=== PATIENT | female | born 1940 | race Caucasian/White ===

== ENCOUNTER 2024-09-23 21:04 | Day surgery (SDC) | payer OTHER, SELFPAY ==
[2024-09-23] VITALS (7 sets, daily range): BP systolic 96–133; BP diastolic 58–85; BMI 30.9; BMI 30.1
[2024-09-23] MEDS: OMNIPAQUE 50 ML PO (14:08)
[2024-09-23 14:31] LABS: % Basophils 0.4 % (0-2); % Eosinophils 1.3 % (0-6); % Immature Granulocytes 0.3 % (0-0.5); % Lymphocytes 9.6 % (20.5-51.1); % Monocytes 8.7 % (1.7-9.3); % Neutrophils 79.7 % (42.2-75.2); Absolute Eosinophils 0.1 10^3/uL (0-0.7); Absolute Monocytes 0.9 10^3/uL (0.1-0.6); Absolute Neutrophils 8.5 10^3/uL (1.4-6.5); Hematocrit 38.8 % (37.0-47.0); Hemoglobin 13.5 g/dL (12.0-16.0); Mean Corp Hgb Conc. 34.8 g/dL (33.0-37.0); Mean Corpuscular Hgb 31.1 pg (27.0-31.0); Mean Corpuscular Volume 89.4 fL (81.0-99.0); Nucleated Red Blood Cells % 0 %; Platelet Count 212 10^3/uL (130-400); Red Blood Cell Count 4.34 10^6/uL (4.20-5.40); Red Cell Dist. Width 13.2 % (11.5-14.5); White Blood Cell Count 10.6 10^3/uL (4.8-10.8)
[2024-09-23 14:33] LABS: Urine Albumin 2+ (Neg - Trace); Urine Bilirubin Negative (Negative); Urine Character Clear (Clear); Urine Color Yellow; Urine Glucose Negative (Negative); Urine Ketone Negative (Negative); Urine Leukocyte 1+ (Negative); Urine Nitrite Negative (Negative); Urine Occult Blood 1+ (Negative); Urine Urobilinogen 1+ (Neg - 1+)
[2024-09-23 14:42] LABS: Urine Bacteria Moderate (Negative); Urine Hyaline Cast 0-2 /LPF (0-2); Urine Red Blood Cell 0-2 /HPF (0-2)
[2024-09-23 14:44] LABS: ALT (SGPT) 24 U/L (0-35); AST (SGOT) 27 U/L (14-36); Albumin 4.1 g/dl (3.5-5.0); Alkaline Phosphatase 52 U/L (38-126); Blood Urea Nitrogen 22 mg/dl (7-17); Calcium 9.9 mg/dl (8.4-10.2); Carbon Dioxide 25 mmol/L (22-30); Chloride 107 mmol/L (98-107); Glucose 129 mg/dl (70-99); Lipase 65 U/L (23-300); Potassium 4.2 mmol/L (3.5-5.1); Sodium 138 mmol/L (135-145); Total Bilirubin 1.1 mg/dl (0.2-1.3); Total Protein 6.7 g/dl (6.3-8.2); eGFR 56.25
[2024-09-23] MEDS: ZOSYN 50 IV ×2 (17:50→23:45)
--- NOTE | 2024-09-23 17:57 | ED.GENMED ---
History of Present Illness
General
Chief Complaint: Abdominal Pain
Source: patient
Time Seen by Provider: 09/23/24 17:10
History of Present Illness
History of Present Illness:
84-year-old female presenting to the emergency department for evaluation of right lower quadrant pain that started yesterday, continued today with pain described to be somewhat constant but worse when she attempts movement, dull aching sensation
that becomes sharper when she moves, somewhat improved with Motrin that she took earlier today around 11 AM. Patient denies any other symptoms including nausea, vomiting, bowel changes, urinary symptoms, back or flank pain, chest pain or shortness
of breath, fevers, chills, rigors or any other concerns.
Past History
Past History
ED Past Medical History: Hypercholesterolemia and Psychiatric (depression)
ED Past Surgical History: None
Social History
Tobacco: Non-smoker
Alcohol: None
Drug: None
Personal:
Living: alone
Family History
Family History: Other (not applicable)
Review of Systems
Review of Systems
All Other Systems: ROS reviewed and negative except as documented in HPI and ROS
Phy Exam
Physical Exam
Physical Exam:
GENERAL: Alert , in no apparent distress, smiling and pleasant
EYE: clear conjunctiva b/l
HEAD: NCAT
ENT: , mmm.
CARDIAC: Regular rate and rhythm .
LUNGS: Clear breath sounds bilaterally, no acute respiratory distress, no wheezes/rales/rhonchi
ABDOMEN: Soft, mild right lower quadrant tenderness on palpation, no r/g, no cvat
NEUROLOGICAL: Alert and oriented
SKIN: Warm and dry, skin intact.
MUSCULOSKELETAL: , well perfused.
PSYCH: Normal and appropriate interaction.
Scores
Heart Failure Risk
Heart Failure Risk Score: Not Applicable
Heart Score for Chest Pain Patients
STEMI patient?: Not applicable
Withdrawal Assessment of Alcohol
Withdrawal Assessment Completed?: Not applicable
Course
Orders/Labs/Results
Orders:
Orders
09/23/24 14:06
Iohexol [Omnipaque] 50 ml .ROUTE .STK-MED ONE
09/23/24 14:07
Iohexol [Omnipaque] See Protocol PO NOW STA
09/23/24 14:18
Complete Blood Count/With Diff Urgent
Comprehensive Metabolic Panel Urgent
Lipase Urgent
Urinalysis Reflex To Culture Urgent
Date Specimen was Collected: 09/23/24
Time Specimen was Collected: 14:04
Urine Microscopic Reflex Cult Urgent
Urine Culture Urgent
ROBERT Source: U
Specimen Description:
Date Specimen was Collected: 09/23/24
Time Specimen was Collected: 14:04
09/23/24 16:20
CT Abd/pel (oral only)-DH Only Urgent
Comment: started drinking @1400
Reason For Exam: RLQ pain
09/23/24 17:34
Electrocardiogram (*1) Urgent
Reason for Study: PreOp
EKG- Treatment ONCE
09/23/24 17:43
Piperacillin/Tazo 3.375 Gram [Zosyn] 3.375 gram in 50 ml IV NOW
09/23/24 18:34
Ibuprofen [Motrin] 600 mg PO NOW STA
Abnormal Lab Results
09/23/24
14:18
MCH 31.1 H pg
(27.0-31.0)
Absolute Neuts (auto) 8.5 H 10^3/uL
(1.4-6.5)
Absolute Lymphs (auto) 1.0 L 10^3/uL
(1.2-3.4)
Absolute Monos (auto) 0.9 H 10^3/uL
(0.1-0.6)
Neutrophils % 79.7 H %
(42.2-75.2)
Lymphocytes % 9.6 L %
(20.5-51.1)
BUN 22 H mg/dl
(7-17)
Glucose 129 H mg/dl
(70-99)
Ur Occult Blood Reflex 1+ A
(Negative)
Leukocyte Esterase Rfl 1+ A
(Negative)
Urine Bacteria (Reflex) Moderate A
(Negative)
Urine Albumin (Reflex) 2+ A
(Neg - Trace)
09/23/24 14:18
09/23/24 14:18
Vital Signs
Initial and Last Documented VS:
Initial Vital Signs
Temp Pulse Resp BP Pulse Ox
98.8 F 89 16 111/85 98
09/23/24 14:01 09/23/24 14:01 09/23/24 14:01 09/23/24 14:01 09/23/24 14:01
Last Documented Vital Signs
Temp Pulse Resp BP Pulse Ox
98.6 F 75 16 132/69 98
09/23/24 17:38 09/23/24 17:38 09/23/24 17:38 09/23/24 17:38 09/23/24 17:38
MDM/Problems Addressed
Differential Diagnosis Includes:
Appendicitis, cholecystitis, pancreatitis, urinary tract infection, abdominal muscle strain
MDM/Problems Addressed:
84-year-old female presenting to the ER for evaluation of right lower quadrant abdominal pain since yesterday, pain seems to be a little bit worse with movement, tolerable presently, took 600 mg Motrin around 11 AM this morning. Workup initiated on
arrival with reassuring labs. CT scan ordered shows acute uncomplicated appendicitis. Will discuss case with general surgery. Plan for admission.
*Radiology
Radiology exam reviewed: radiology read reviewed
*Pulse Oximetry
Patient hypoxic: no
*Critical Care Note
Total Time (30-74mins, 75-104mins- exclusive of procedures): Not Applicable
Patient Management
Discussion with other providers: Hospitalist and Laundry Folder
Escalation/DeEscalation of care consider admission/obs:
Case discussed with general surgery who is requesting patient be admitted to hospitalist service, can give a dose of Zosyn now, n.p.o. after midnight, plan for OR tomorrow morning. Hospitalist team accepts for continued evaluation and treatment.
ED Attending Note
-
Portions of this chart may have been created with voice recognition software.� Occasional wrong word or��sound alike� substitutions may have occurred due to the inherent limitations of voice recognition software.
Discharge Plan
Departure
Patient Disposition: Admit
Date of Disposition: 09/23/24
Time of Disposition: 17:58
Presentation/result/management discussed w/ accepting MD/DO: Hospitalist
Discharge Problem:
Acute appendicitis
Prescriptions:
No Action
acetaminophen 325 MG tablet
650 mg PO Q6HPRN PRN (Reason: mild pain) 0RF
aspirin,buffd-calcium carb-mag [Tri-Buffered Aspirin] 325 MG tablet
325 mg PO DAILY 0RF
docusate sodium 100 MG capsule
100 mg PO BID 0RF
oxycodone 5 MG tablet
5 mg PO Q4HPRN PRN (Reason: mild pain) Qty: 18 0RF
escitalopram oxalate 20 MG tablet
15 mg PO DAILY Qty: 1 0RF
Interventions
Interventions:
*Risk Screen - Suicide Last Done: 09/23/24 14:01
*General Assessment Last Done: 09/23/24 17:44
*Neglect/Abuse Screening Last Done: 09/23/24 14:01
*ED COVID-19 Vaccine History Last Done: 09/23/24 17:44
SC-Poassm-Whcjvmwkei Assessment Last Done: 09/23/24 18:04
Discharge Date and Time
Print Language: CAPE VERDEAN
[2024-09-23] MEDS: MOTRIN 600 MG PO (19:39)
--- NOTE | 2024-09-23 20:24 | HPS.HSE ---
Family Physician
-
Family Physician: Shruti Castaneda
Chief Complaint
-
Right lower quadrant abdominal pain
History of Present Illness
The patient is a pleasant 84-year-old woman with past medical history significant for hyperlipidemia, depression, who presented to the emergency department after experiencing generalized abdominal pain that started yesterday and then when she woke
up this morning it localized to her right lower quadrant. The pain was sharp and constant and brought her to the emergency department. She denies nausea vomiting dysuria back or flank pain, she denies chest pain or shortness of breath, no fevers
chills or rigors, no bleeding or easy bruising. Her mother and aunt both from colon cancer. She is up-to-date on her colonoscopy screening.
ED treatmentIV Zosyn
IV Zosyn
Ibuprofen
Medical History
Past Medical History
Past Medical History: Reports Hypercholesterolemia and Psychiatric (Depression he)
Past Surgical History: Reports Gynocological (Hysterectomy)
Social History
Tobacco: Non-smoker
Alcohol: None
Drug: None
Personal:
Living: Alone
Family History
Family History: Other (Mother and aunt with colon cancer)
Allergies / Home Medications
Allergies reflects when Allergies were last updated in [facility].
Home Medications with original date entered in [facility]
Allergy/Medication List:
Allergies
Allergy/AdvReac Type Severity Reaction Status Date / Time
No Known Allergies Allergy Verified 09/23/24 14:03
Home Medications
cyanocobalamin (vitamin B-12) 100 mcg tablet (Vitamin B-12) 100 mcg PO Q48H 09/23/24
escitalopram oxalate 10 mg tablet 15 mg PO DAILY 09/23/24
fenofibrate nanocrystallized 145 mg tablet 145 mg PO DAILY 09/23/24
ibuprofen 200 mg tablet 600 mg PO DAILYPRN PRN mild pain 09/23/24
omega 6-rwi-xom-fish oil 1,000 mg (120 mg-180 mg) capsule (Fish Oil) 1 cap PO DAILY 09/23/24
therapeutic multivitamin 1 tab PO DAILY 09/23/24
Review of Systems
-
A 12 point ROS was completed and negative except as noted: Yes
Physical Exam
Vital Signs
Vital Signs
Temp Pulse Resp BP Pulse Ox
98.4 F 70 16 128/63 97
09/23/24 19:38 09/23/24 20:00 09/23/24 19:38 09/23/24 20:00 09/23/24 20:00
Physical Exam
General: Well Developed, Well Nourished, No Apparent Distress and Conversant
HEENT: NormoCephalic, Anicteric and Moist mucous membranes
Respiratory: Clear
Cardiac: S1/S2 and Regular Rhythm
GI: Soft and Tender (Sharp pain in the right lower quadrant, positive voluntary guarding)
Musculoskeletal: No Clubbing, No Cyanosis and No Edema
Skin: Warm and Dry
Neuro: AO x 3 and No Motor Deficits
Psych: Calm
Laboratory Results
-
09/23/24 14:18
09/23/24 14:18
Laboratory Results
Total Bilirubin 1.1 mg/dl (0.2-1.3) 09/23/24 14:18
AST 27 U/L (14-36) 09/23/24 14:18
ALT 24 U/L (0-35) 09/23/24 14:18
Alkaline Phosphatase 52 U/L (38-126) 09/23/24 14:18
Lipase 65 U/L (23-300) 09/23/24 14:18
Data Reviewed
-
CT Scan: Report Reviewed by me, Discussed with Physician and Discussed with Patient
Impression/Plan
-
IMPRESSION:
The patient is a pleasant 84-year-old woman with past medical history significant for hyperlipidemia, depression, who presented to the emergency department after experiencing generalized abdominal pain that started yesterday and then when she woke
up this morning it localized to her right lower quadrant. The pain was sharp and constant and brought her to the emergency department. She denies nausea vomiting dysuria back or flank pain, she denies chest pain or shortness of breath, no fevers
chills or rigors, no bleeding or easy bruising. Her mother and aunt both from colon cancer. She is up-to-date on her colonoscopy screening.
ED treatment
IV Zosyn
Ibuprofen
# Acute appendicitis
- Patient has a thick walled dilated appendix measuring up to 1.2 cm with moderate surrounding inflammatory changes. There are no abscesses nor evidence for perforation.
- General surgery has been consulted from the ED and the plan is for n.p.o. past midnight and IV fluids, for surgical intervention the morning
- IV Zosyn was started in the emergency department we will continue this.
# Depression
-Escitalopram
# Hyperlipidemia
-DVT prophylaxis-PCD's
Full code
[2024-09-23] MEDS: NSS 1000 IV (22:53)
[2024-09-23] MEDS: TORADOL 15 MG IV (23:44)
[2024-09-24] VITALS (14 sets, daily range): BP systolic 40–152; BP diastolic 50–78
--- NOTE | 2024-09-24 00:20 | PTCARENOTE ---
Pt arrived at 2230 from ED. Pt was able to ambulate into room assist X1. VSS. Pt AAOX3. Oriented to room and call romero. head to toe assessment complete. bed locked and in lowest position.
[2024-09-24] MEDS: ZOSYN 50 IV ×4 (05:32→23:33)
[2024-09-24 07:32] LABS: INR 1.11; PT 14.6 Sec (11.4-14.6)
[2024-09-24 07:34] LABS: % Basophils 0.2 % (0-2); % Eosinophils 1.3 % (0-6); % Immature Granulocytes 0.5 % (0-0.5); Absolute Eosinophils 0.1 10^3/uL (0-0.7); Absolute Lymphocytes 0.8 10^3/uL (1.2-3.4); Absolute Monocytes 0.8 10^3/uL (0.1-0.6); Hematocrit 37.6 % (37.0-47.0); Hemoglobin 12.8 g/dL (12.0-16.0); Mean Corpuscular Hgb 31.4 pg (27.0-31.0); Mean Corpuscular Volume 92.2 fL (81.0-99.0); Mean Platelet Volume 10.5 fL (7.4-10.4); Nucleated Red Blood Cells % 0 %; Platelet Count 179 10^3/uL (130-400); Red Blood Cell Count 4.08 10^6/uL (4.20-5.40); Red Cell Dist. Width 13.3 % (11.5-14.5); White Blood Cell Count 8.8 10^3/uL (4.8-10.8)
[2024-09-24 07:52] LABS: Blood Urea Nitrogen 17 mg/dl (7-17); Calcium 9.1 mg/dl (8.4-10.2); Carbon Dioxide 26 mmol/L (22-30); Chloride 106 mmol/L (98-107); Estimated Creatinine Clearance 43 ml/min; Glucose 115 mg/dl (70-99); Potassium 3.9 mmol/L (3.5-5.1); Sodium 140 mmol/L (135-145); eGFR 50.17
[2024-09-24] MEDS: DILAUDID 0.25 MG IV ×2 (08:05→22:14)
[2024-09-24] MEDS: LEXAPRO 15 MG PO (08:06)
[2024-09-24] MEDS: TRICOR 145 MG PO (08:07)
[2024-09-24] MEDS: NSS 1000 IV (08:08)
--- NOTE | 2024-09-24 08:08 | CON.GS ---
Addendum entered and electronically signed by Butch Polk MD 09/24/24 11:32:
Patient's daughter updated via phone conversation.
Original Note:
Consultation
-
Date/Time Consultation Performed: 09/24/24 0800
Medical History
-
Chief Complaint: RLQ pain
History of Present Illness:
Ms Mccracken is an 84 yo female with a h/o BALDOMERO remotely who presents with RLQ pain with generalized abdominal pain which began on Wednesday and then localized to her RLQ yesterday morning. It persisted her throughout the day causing her to present
through the ED for evaluation. She denies associated nausea, vomiting or fevers. On exam, there is RLQ tenderness present.
Past Medical History
Past Medical History: Hypercholesterolemia and Psychiatric (depression)
Past Surgical History: Gynecological (baldomero)
Social History
Tobacco: Non-Smoker
Alcohol: None
Family History
Family History: Reviewed & Not Pertinent
Allergies / Home Medications
Allergy/AdvReac Type Severity Reaction Status Date / Time
No Known Allergies Allergy Verified 09/23/24 14:03
�Medication �Instructions �Recorded �Confirmed �Type
cyanocobalamin (vitamin B-12) 100 100 mcg PO Q48H 09/23/24 09/23/24 History
mcg tablet (Vitamin B-12)
escitalopram oxalate 10 mg tablet 15 mg PO DAILY 09/23/24 09/23/24 History
fenofibrate nanocrystallized 145 145 mg PO DAILY 09/23/24 09/23/24 History
mg tablet
ibuprofen 200 mg tablet 600 mg PO DAILYPRN PRN mild pain 09/23/24 09/23/24 History
omega 2-ybl-ryi-fish oil 1,000 mg 1 cap PO DAILY 09/23/24 09/23/24 History
(120 mg-180 mg) capsule (Fish Oil)
therapeutic multivitamin 1 tab PO DAILY 09/23/24 09/23/24 History
Review of Systems
-
History Source: Patient
All other systems: Negative unless noted
A 10 point review of systems was completed, and was negative except as per HPI.
Physical Exam
Vital Signs
Temp Pulse Resp BP Pulse Ox
97.9 F 79 18 131/65 98
09/23/24 22:35 09/23/24 22:35 09/23/24 22:35 09/23/24 22:35 09/23/24 23:57
09/23/24 09/24/24 09/25/24
06:59 06:59 06:59
Actual Weight 84.686 kg
Body Mass Index (BMI) 30.1
Lab Results
09/24/24 06:01
09/24/24 06:01
WBC 8.8 10^3/uL (4.8-10.8) 09/24/24 06:01
Hgb 12.8 g/dL (12.0-16.0) 09/24/24 06:01
Hct 37.6 % (37.0-47.0) 09/24/24 06:01
Plt Count 179 10^3/uL (130-400) 09/24/24 06:01
Abs Immat Gran (auto) 0.0 10^3/uL (0-0.05) 09/24/24 06:01
Neutrophils % 80.0 % (42.2-75.2) H 09/24/24 06:01
Physical Exam
General: Well Developed
HEENT: Moist Mucous Membranes
Respiratory: Non Labored Respirations
GI: Soft, Non Distended and Tender (RLQ)
Skin: Warm and Dry
Neuro: Awake and AO x 3
Data Reviewed
-
CT Scan: Image Personally Visualized and interpreted, Report Reviewed by me, Discussed with Physician and Discussed with Patient
Labs: Labs Reviewed by me, Discussed with Physician and Discussed with Patient
Old Records: Reviewed
Assessment / Plan
-
84 yo female with h/o BALDOMERO presenting with RLQ pain and tenderness. CT imaging consistent with acute appendicitis, do not suspect perforation. No leukocytosis. Low grade fever this am of 100.5, stable vital signs.
--NPO for OR today
--antipyretics prn
--c/w IV zosyn
--IVF while npo
--analgesics/antiemetics
--SCDs for vte ppx
--- NOTE | 2024-09-24 10:45 | W.PN.HOSP.TC ---
Today's Communication/Plan
-
OR today
Assessment / Plan
Assessment / Plan
IMPRESSION:
The patient is a pleasant 84-year-old woman with past medical history significant for hyperlipidemia, depression, who presented to the emergency department after experiencing generalized abdominal pain found to have appendicitis, Plan for today.
Assessment/plan:
Acute appendicitis
- Patient has a thick walled dilated appendix measuring up to 1.2 cm with moderate surrounding inflammatory changes. There are no abscesses nor evidence for perforation.
Seen by general surgery.
Plan for OR today.
Continue IV antibiotic in form of Zosyn
History of depression.
Continue citalopram.
History of hyperlipidemia
Continue statin
CODE STATUS: Full code
DVT prophylaxis: SCDs
Diet: NPO
Total time spent on today's encounter was 55 minutes which included time spent in counseling the patient/family regarding diagnosis and treatment plan as listed above, goals of care, and symptom management. Case was discussed with nursing staff,
specialists, and care coordinators/case management. All labs and imaging personally reviewed by me. Remainder the time spent in detailed review of previous records, lab data, imaging, and other medical provider documentation.
Anticipated Discharge: Within 24 hours
Subjective/Interval History
-
Date of Service: September 24, 2024
Patient seen and examined at bedside, denies any chest pain or shortness of breath, right lower quadrant abdominal pain improved with pain medications, no nausea, no vomiting, no diarrhea or constipation.
Plan for OR today.
Objective Data
-
Labs:
Laboratory Results
09/24/24
06:01
WBC 8.8
Hgb 12.8
Hct 37.6
Plt Count 179
PT 14.6
INR 1.11
Sodium 140
Potassium 3.9
Chloride 106
Carbon Dioxide 26
BUN 17
Creatinine 1.1 H
Glucose 115 H
Calcium 9.1
Vital Signs:
Vital Signs
Temp Pulse Resp BP Pulse Ox
100.5 F H 88 16 152/78 96
09/24/24 07:05 09/24/24 07:05 09/24/24 07:05 09/24/24 07:05 09/24/24 07:05
I&O
09/23/24 09/24/24 09/25/24
06:59 06:59 06:59
Intake Total 900 / 900
Balance 900 / 900
Physical Exam
-
General: Well Developed, Well Nourished, No Apparent Distress and Comfortable
HEENT: Normocephalic, Atraumatic, Moist Mucous Membranes, No Ptosis, PERRLA and Nose Appears Normal
Respiratory: Clear to Auscultation and Non Labored Respirations
Cardiac: Regular Rhythm and S1/S2
Breast: Deferred by me
GI: Nondistended, Normal Bowel Sounds and Tender (Right lower quadrant)
Genito-urinary: No Costovertebral Tender
Musculoskeletal: No Clubbing, No Cyanosis and No Edema
Skin: Warm
Neuro: Awake, Alert, Oriented, AO x 3 and No Motor Deficits
Psych: Calm
Data Reviewed
-
Diagnostic Radiology: Image personally visualized and interpreted and Report Reviewed by me
CT Scan: Image personally visualized and interpreted and Report Reviewed by me
Ultrasound: Image personally visualized and interpreted and Report Reviewed by me
MRI: Image personally visualized and interpreted and Report Reviewed by me
Medical Tests (Nuc Med, Echo etc): Image personally visualized and interpreted and Report Reviewed by me
Labs: Labs Reviewed by me
Old Records: Reviewed
--- NOTE | 2024-09-24 11:23 | W.IMMPOSTOP ---
Surgical Immed Post Op Note
-
Primary Surgeon: Melchor Polk MD
Assisting Surgeon: CARRIE Sands
Pre-op Diagnosis: acute appendicitis
Post-op Diagnosis: acute appendicitis with perforation
Procedure Performed: laparoscopic appendectomy
Anesthesia Type: general plus local
Specimen / Cultures: appendix
Estimated Blood Loss: 25 cc
Complications: no immediate
Operative Findings: inflamed perforated appendix
#19 Gregory placed.
Patterson in bladder.
Sending back to med surg.
[2024-09-25] MEDS: TYLENOL 1000 MG PO ×3 (03:05→22:04)
[2024-09-25 03:10] VITALS: BP 110/58
[2024-09-25] MEDS: ZOSYN 50 IV ×4 (05:17→23:48)
[2024-09-25 07:00] VITALS: BP 105/57
[2024-09-25 08:28] LABS: Hematocrit 32.8 % (37.0-47.0); Hemoglobin 11.2 g/dL (12.0-16.0); Mean Corp Hgb Conc. 34.1 g/dL (33.0-37.0); Mean Corpuscular Hgb 31.6 pg (27.0-31.0); Mean Corpuscular Volume 92.7 fL (81.0-99.0); Mean Platelet Volume 10.6 fL (7.4-10.4); Platelet Count 167 10^3/uL (130-400); Red Blood Cell Count 3.54 10^6/uL (4.20-5.40); Red Cell Dist. Width 13.2 % (11.5-14.5); White Blood Cell Count 10.4 10^3/uL (4.8-10.8)
[2024-09-25] MEDS: VITAMIN B-12 100 MCG PO (08:49)
[2024-09-25] MEDS: LEXAPRO 15 MG PO (08:49)
[2024-09-25] MEDS: TRICOR 145 MG PO (08:49)
[2024-09-25 08:53] LABS: Blood Urea Nitrogen 16 mg/dl (7-17); Calcium 8.3 mg/dl (8.4-10.2); Carbon Dioxide 27 mmol/L (22-30); Chloride 106 mmol/L (98-107); Estimated Creatinine Clearance 48 ml/min; Glucose 98 mg/dl (70-99); Potassium 3.9 mmol/L (3.5-5.1); Sodium 138 mmol/L (135-145); eGFR 56.25
--- NOTE | 2024-09-25 09:11 | W.PN.HOSP.TC ---
Today's Communication/Plan
-
Cleared by surgery for discharge today
Assessment / Plan
Assessment / Plan
IMPRESSION:
The patient is a pleasant 84-year-old woman with past medical history significant for hyperlipidemia, depression, who presented to the emergency department after experiencing generalized abdominal pain found to have appendicitis, Plan for today.
Assessment/plan:
Acute appendicitis
- Patient has a thick walled dilated appendix measuring up to 1.2 cm with moderate surrounding inflammatory changes. There are no abscesses nor evidence for perforation.
- Appreciate general surgery input, status post laparoscopic appendectomy 09/24 with drain placement. Drain removed 09/25 prior to discharge
� Patient doing well today, cleared by general surgery for discharge on Augmentin for 5 days
� Follow-up with PCP in the office in 1 week, general surgery in the office in 2-3 weeks.
History of depression.
Continue citalopram.
History of hyperlipidemia
Continue statin
Physical Exam
General: No acute distress
HEENT: Normocephalic, Atraumatic, EOMI, MMM
Respiratory: Clear to Auscultation bilaterally
Cardiac: Normal S1/S2, Regular Rate and Rhythm
GI: Soft, Nontender, Nondistended, Normal Bowel Sounds
Extremities: No Clubbing, Cyanosis, or Edema
Neuro: Nonfocal/Grossly Intact
Psych: Calm, Cooperative
Derm: No Visible lesions
Anticipated Discharge: Today
Subjective/Interval History
-
Date of Service: September 25, 2024
Patient reports her abdominal pain is 5 out of 10 in intensity. Denies nausea, vomiting. No chest pain, shortness of breath. Fever resolved.
Objective Data
-
Labs:
Laboratory Results
09/25/24
06:43
WBC 10.4
Hgb 11.2 L
Hct 32.8 L
Plt Count 167
Sodium 138
Potassium 3.9
Chloride 106
Carbon Dioxide 27
BUN 16
Creatinine 1.0
Glucose 98
Calcium 8.3 L
Vital Signs:
Vital Signs
Temp Pulse Resp BP Pulse Ox
98.5 F 102 16 105/57 95
09/25/24 07:00 09/25/24 07:00 09/25/24 07:00 09/25/24 07:00 09/25/24 07:00
I&O
09/24/24 09/25/24 09/26/24
06:59 06:59 06:59
Intake Total 900 / 900 1520 / 1520
Output Total 980 / 980
Balance 900 / 900 540 / 540
--- NOTE | 2024-09-25 09:15 | W.PN.CRS1 ---
Today's Communication / Plan
-
regular diet
d/c summers/ivfs when tolerating
oob with PT
pain control
arminda drain until discharge
Assessment/Plan
-
POD#1 laparoscopic appendectomy
Vitals normal, WBC 10.4
-Regular diet
-D/C IVFs when toelrating po
-Continue IV antibiotics
-OOB as tolerated with PT
-D/C summers
-Lovenox for dvt prophylaxis, TEDs/SCDS in place
-OR pathology pending
-Pain control: tylenol/oxycodone/diluadid PRN
-D/C ducolox
-Possible d/c home later today if tolerates a diet
-Will remove ARMINDA drain prior to d/c
Subjective Data
Procedure
09/24/2024- laparoscopic appendectomy
Subjective Data
Date of Service: September 25, 2024
Patient states she has not eaten much and she is not that hungry. She denies nausea or vomiting. She has not had bowel movements yet but has flatus.
Objective Data
-
Vital Signs
Temp Pulse Resp BP Pulse Ox
98.5 F 102 16 105/57 95
09/25/24 07:00 09/25/24 07:00 09/25/24 07:00 09/25/24 07:00 09/25/24 07:00
Intake & Output
09/24/24 09/25/24 09/26/24
06:59 06:59 06:59
Intake Total 900 / 900 1520 / 1520
Output Total 980 / 980
Balance 900 / 900 540 / 540
Intake:
Oral fluids 720 / 720
IV fluids (Total) 800 / 800 700 / 700
Normosol 400 / 400
IV piggybacks 100 / 100 100 / 100
Output:
Drain Output (Total)
Left Middle Abdomen [place]-
[place] A
Urine, Summers 925 / 925
Other:
Number of approximated SMALL 1
amounts of urine
Number of approximated MODERATE 3 1
amounts of urine
Lab Results
09/25/24 06:43
09/25/24 06:43
Physical Exam
-
General: No Acute Distress and AOx3
Abdomen: Soft, Non Distended and Non Tender
Skin: Warm and Dry
Incision: Clear, Dry, Intact
[2024-09-25] MEDS: MIRALAX 17 GRAMS PO (10:49)
[2024-09-25 11:10] VITALS: BP 117/62
--- NOTE | 2024-09-25 11:58 | CM ---
Addendum entered by Renee Heath 09/25/24 14:26:
Changed to inpatient status
Pt made aware. Given IMM
Original Note:
Met with pt at bedside. Initial assessment completed
Lives alone in a 1 story cottage. No HERVE
Independent at baseline, no devices, drives
DME - [employer]
SNF/HH - no past hx
Has ride at d/c
PCP - Shruti Castaneda
Pharm -[facility]
Reviewed/given GARCIA
Plan - anticipate home no needs
[2024-09-25 12:28] VITALS: BP 117/58; PULSE 73
--- NOTE | 2024-09-25 12:34 | PTOTSP ---
Pt is independent with bed mobility, transfers, and ambulation without need for any assistive device. No skilled PT needs were identified. Will sign off.
[2024-09-25 15:00] VITALS: BP 112/56
--- NOTE | 2024-09-25 15:02 | W.PN.UPDATE ---
Update Note
Progress Note Update
Cancel discharge, patient eating very little, and would like to stay another day.
Total time spent to see the patient on the floor, examine the patient, review data and lab results, discuss treatment plan with patient, nursing staff around 35 minutes.
[2024-09-25] MEDS: ROXICODONE 5 MG PO (18:26)
[2024-09-25] MEDS: LOVENOX 40 MG SC (18:27)
[2024-09-25] MEDS: MYLICON 80 MG PO (21:57)
[2024-09-25 23:24] VITALS: BP 118/58
[2024-09-26] MEDS: ZOSYN 50 IV (05:17)
[2024-09-26 07:05] VITALS: BP 150/71
[2024-09-26] MEDS: MIRALAX PO (08:51)
[2024-09-26] MEDS: LEXAPRO 15 MG PO (08:51)
[2024-09-26] MEDS: TRICOR 145 MG PO (08:51)
--- NOTE | 2024-09-26 09:43 | W.PN.HOSP.TC ---
Today's Communication/Plan
-
Discharge today
Assessment / Plan
Assessment / Plan
IMPRESSION:
The patient is a pleasant 84-year-old woman with past medical history significant for hyperlipidemia, depression, who presented to the emergency department after experiencing generalized abdominal pain found to have appendicitis, Plan for today.
Assessment/plan:
Acute appendicitis
- Patient has a thick walled dilated appendix measuring up to 1.2 cm with moderate surrounding inflammatory changes. There are no abscesses nor evidence for perforation.
- Appreciate general surgery input, status post laparoscopic appendectomy 09/24 with drain placement. Drain removed 09/25 prior to discharge
� Patient doing well today, cleared by general surgery for discharge on Augmentin for 5 days
� Follow-up with PCP in the office in 1 week, general surgery in the office in 2-3 weeks.
History of depression.
Continue citalopram.
History of hyperlipidemia
Continue statin
Physical Exam
General: No acute distress
HEENT: Normocephalic, Atraumatic, EOMI, MMM
Respiratory: Clear to Auscultation bilaterally
Cardiac: Normal S1/S2, Regular Rate and Rhythm
GI: Soft, Nontender, Nondistended, Normal Bowel Sounds
Extremities: No Clubbing, Cyanosis, or Edema
Neuro: Nonfocal/Grossly Intact
Psych: Calm, Cooperative
Derm: No Visible lesions
Anticipated Discharge: Today
Subjective/Interval History
-
Date of Service: September 26, 2024
Feels better. Abd pain is tolerable. No N/V. No CP, SOB. No fever.
Objective Data
-
Vital Signs:
Vital Signs
Temp Pulse Resp BP Pulse Ox
98.5 F 74 16 150/71 97
09/26/24 07:05 09/26/24 07:05 09/26/24 07:05 09/26/24 07:05 09/26/24 07:05
I&O
09/25/24 09/26/24 09/27/24
06:59 06:59 06:59
Intake Total 1520 / 1520 960 / 960
Output Total 980 / 980 1220 / 1220
Balance 540 / 540 -260 / -260
--- NOTE | 2024-09-26 10:04 | W.PN.CRS1 ---
Today's Communication / Plan
-
okay for d/c from our standpoint
Assessment/Plan
-
POD#1 laparoscopic appendectomy
Vitals normal
-Regular diet
-Continue IV antibiotics until d/c then transition
-OOB as tolerated with PT
-Lovenox for dvt prophylaxis, TEDs/SCDS in place
-OR pathology pending
-Pain control: tylenol/oxycodone/diluadid PRN
-Russell drain removed at bedside
-Okay for discharge from our perspective. All discharge instructions discussed with patient including medications, activity levels and follow up. All questions addressed.
Subjective Data
Procedure
09/24/2024- laparoscopic appendectomy
Subjective Data
Date of Service: September 26, 2024
Patient states she is feeling much better than yesterday. She had a bowel movement and gas. Her pain is controlled. She would like to go home.
Objective Data
-
Vital Signs
Temp Pulse Resp BP Pulse Ox
98.5 F 74 16 150/71 97
09/26/24 07:05 09/26/24 07:05 09/26/24 07:05 09/26/24 07:05 09/26/24 07:05
Intake & Output
09/25/24 09/26/24 09/27/24
06:59 06:59 06:59
Intake Total 1520 / 1520 960 / 960
Output Total 980 / 980 1220 / 1220
Balance 540 / 540 -260 / -260
Intake:
Oral fluids 720 / 720 960 / 960
IV fluids (Total) 700 / 700
Normosol 400 / 400
IV piggybacks 100 / 100
Output:
Drain Output (Total) 55 / 55 70 / 70
Left Middle Abdomen [place]- 55 / 55 70 / 70
[place] A
Urine, [place] 925 / 925
Urine, Voided 1150 / 1150
Other:
Number of approximated SMALL 1
amounts of urine
Number of approximated MODERATE 1 2
amounts of urine
Lab Results
09/25/24 06:43
09/25/24 06:43
Physical Exam
-
General: No Acute Distress and AOx3
Abdomen: Soft, Non Distended and Non Tender
Skin: Warm and Dry
Incision: Clear, Dry, Intact
--- NOTE | 2024-09-26 10:08 | CM ---
Pt for discharge today
Has transport home
Plan - anticipate home no needs
[2024-09-26 10:55] VITALS: BP 147/59
--- NOTE | 2024-09-26 15:00 | W.DCSUMMARY ---
Discharge Summary
Discharge Data
Date of Admission: 09/23/24
Date of Discharge: 09/26/24
-
Pending Results: No
Hospital Course
Discharge diagnosis:
Acute appendicitis with perforation
Depression
Hyperlipidemia
Consults: Colorectal surgery
Procedures:
09/24/2024 laparoscopic appendectomy with drain placement
Hospital course:
84-year-old female with a past medical history of depression and hyperlipidemia was admitted for acute appendicitis with perforation. Patient was seen in conjunction with colorectal surgery. She was treated with IV Zosyn. She underwent
laparoscopic appendectomy with drain placement. She was treated with pain medications, antiemetics postoperatively. She did well. Her drain was removed. She tolerated her diet. She is medically stable for discharge on Augmentin for 5 more days.
She needs to follow-up with her primary care doctor in 1 week, and her surgeon in 2-3 weeks.
Disposition: Home self-care
Discharge planning: Required 33 minutes
Discharge Plan
-
Patient Disposition: Home (Routine Discharge)
Discharge Diagnosis/Procedures: Appendicitis status post appendectomy
Condition: Good
Diet: As tolerated and Regular
Activity: No strenuous activity
Additional Activity: do not lift over 10lbs (gallon of milk)
Driving Restrictions: No driving for 24 hours
Bathing Restrictions: OK to Shower
Wound Care: Allow the glue to flake off over the next 2-3 weeks on its own. Avoid scrubbing or picking it off. Do not soak in tubs or pools.
Activity Restrictions/Additional Instructions:
Call your surgeon if you have nausea with vomiting, worsening pain or a fever >100.4
Referrals:
Butch Polk MD [Active] - in two to four weeks
Shruti Castaneda PA-C [Family Provider] - in one week
Additional Discharge Medication Instructions: Tylenol/acetaminophen or Ibuprofen as needed for pain. Maximum dose of Tylenol is 4,000mg in 24 hours. Maximum dose of Ibuprofen is 3,200mg in 24 hours.
Prescriptions:
New
acetaminophen [Tylenol Extra Strength] 500 mg Tablet
1,000 mg PO Q6HPRN PRN (Reason: mild pain, fever >100.4F) Qty: 0 0RF
amoxicillin-pot clavulanate 875-125 mg tablet
1 tab PO BID 5 Days Qty: 10 0RF
tramadol 25 mg tablet
25 mg PO Q6H PRN (Reason: Pain) Qty: 20 0RF
Continued
cyanocobalamin (vitamin B-12) [Vitamin B-12] 100 mcg Tablet
100 mcg PO Q48H
therapeutic multivitamin Tablet
1 tab PO DAILY
ibuprofen 200 mg Tablet
600 mg PO DAILYPRN PRN (Reason: mild pain)
escitalopram oxalate 10 mg Tablet
15 mg PO DAILY
fenofibrate nanocrystallized 145 mg Tablet
145 mg PO DAILY
omega [id number]-[id number]-fish oil [Fish Oil] 1,000 (120-180) mg Capsule
1 cap PO DAILY
Discharge Orders:
Discharge Patient (As Directed); Ordered 09/26/24
Ordered By: Ron Trejo
Discharge Date and Time
Discharge Date/Time: 09/26/24 11:27
Print Language: BELARUSIAN
== END 2024-09-26 11:27 | disposition home or self-care (01) ==
LOC: PACU 21:04
PROVIDERS: Emergency Medicine; General Practice; Internal Medicine; ATTENDING PHYSICIAN Family Medicine; CONSULT PHYSICIAN Surgery; EMERGENCY PHYSICIAN Emergency Medicine; FAMILY PHYSICIAN Physician Assistant Medical
DX: K35.32 Acute appendicitis with perforation, localized peritonitis, and gangrene, without abscess (principal)
CPT/HCPCS: 44970; 88304; 74176; 80048; 80053; 81003; 81015; 83690; 85025; 85027; 85610; 87086; 93005; 96365; 97161; 99285; C1776

== ENCOUNTER → 2024-12-20 14:27 | Outpatient (REF) | payer OTHER, SELFPAY | LOC: WDC 14:27 | PROVIDERS: ATTENDING PHYSICIAN Physician Assistant Medical | DX: Z12.31 Encounter for screening mammogram for malignant neoplasm of breast (principal) | CPT/HCPCS: 77063; 77067 ==

== ENCOUNTER → 2025-04-02 14:36 | Outpatient (REF) | payer OTHER, SELFPAY | LOC: RCS 14:36 | PROVIDERS: ATTENDING PHYSICIAN Internal Medicine Cardiovascular Disease; FAMILY PHYSICIAN Physician Assistant Medical | DX: R06.02 Shortness of breath (principal) | CPT/HCPCS: 93306 ==